=== PATIENT | female | born 1940 | race Caucasian/White ===

== ENCOUNTER 2018-08-16 08:29 | Outpatient (CLI) | payer MEDICARE ==
[2018-08-16] MEDS ORDERED: TRIAMCINOLONE ACETONIDE 40 MG/ML, 1ML ONE (08:48)
[2018-08-16] MEDS ORDERED: ROPivacaine/PF 0.2%, 10 ML ONE (08:48)
[2018-08-16] MEDS ORDERED: LIDOCAINE-MPF 1%, 5ML ONE (08:49)
[2018-08-16] MEDS ORDERED: OMNIPAQUE 300 MG/ML, 10ML VIAL ONE (09:47)
== END 2018-08-16 23:59 | disposition home or self-care (01) ==
LOC: RAD 08:29
PROVIDERS: ATTEND Orthopaedic Surgery
DX: M79.671 Pain in right foot (principal)
CPT/HCPCS: 20605; 77002; J2795; J3301; Q9967

== ENCOUNTER → 2020-12-09 | Outpatient (CLI) | payer MEDICARE ==
[~2020-12-09] MED LIST: ACYC-40 PO; CALCIUM PO; CHLORTHALIDONE PO; CHOL10003 PO; ENALAPRIL PO; ENOX40SY4 SQ; LORA10TA75 PO; LORATIDINE PO; MELO15TA24 PO; MULTIVITAMIN; OMEP-110 PO; OXYB10TA26 PO; PREG25CA PO; SENN-193 PO; SIMV20TA19 PO; VITAMIN D PO
== END | disposition home or self-care (01) ==
LOC: CFH 11:52
PROVIDERS: ATTEND Internal Medicine Cardiovascular Disease
DX: Z13.6 Encounter for screening for cardiovascular disorders (principal); E78.2 Mixed hyperlipidemia; R91.8 Other nonspecific abnormal finding of lung field
CPT/HCPCS: 75571